=== PATIENT | male | born 1965 | race African-American/Black ===

== ENCOUNTER 2020-03-11 10:00 | Outpatient (REF) | payer OTHER, SELFPAY | END 2020-03-11 10:01 | disposition home or self-care (01) | LOC: HO.WFDLDS 10:00 | PROVIDERS: Visit Provider Internal Medicine | DX: Z20.828 Contact with and (suspected) exposure to other viral communicable diseases (principal) | CPT/HCPCS: C9803; U0003 ==

== ENCOUNTER 2024-08-14 12:08 | Outpatient (AMB) | payer OTHER, SELFPAY ==
--- NOTE | 2024-08-14 12:14 | A.OFFPC_ITS ---
Vital Signs 08/14/24 12:25 Height 5 ft 11 in Weight 207 lb 4 oz BMI 28.9 BP 124/82 Blood Pressure Location Lt brachial Position Sitting Pulse 78 Pulse Source Pulse Oximeter Temp 97.9 F Temp Source Temporal Artery Scan Pulse Oximetry (%) 98 Oxygen Delivery Method Room Air Intake Visit Reasons: TANIA [facility] Intake Note: Werner presents in the office today to establish care - transfer from [facility]. Allergies Seasonal Allergies Allergy (Verified 08/14/24 12:17) Watery eyes, runny nose Tobacco use date assessed: 08/14/24 Dental Screening Dental Screen Date: 08/14/24 Did you have a dental visit in the last 12 months?: Yes Did you have a dental problem in the last 6 months where you did not have access to dental care?: No Was dental information given to patient?: Patient has dentist HPI HPI Comments History of Present Illness Details This is a 58-year-old male with a past medical history of hyperlipidemia, chronic sinusitis, hypertension, hyperlipidemia, aortic root dilatation, cervical radiculopathy and perennial allergic rhinitis presenting for follow up. He is a patient from [facility] primary care. He and his are doing well. His son is finishing up freshman year of high school. BPH-s/p TURP October [address] Esquivel. No complications. Hypertension-Taking amlodipine-benazepril 10-40 mg daily. Patient had an echocardiogram in 2022 which showed aortic root dilatation. He is followed by Cardiology, Dr. Martinez. Hyperlipidemia-managed with lifestyle modifications. He is due for blood work. Allergic rhinitis-he did not respond to allergy injections. He is followed by Dr. Das. He is on medications for this. Spring is the worst season. He uses a mask when he is outside. He does not have asthma. He had a colonoscopy a couple of years ago at [facility] and was told to repeat it in 10 years. He had a tetanus shot at Urgent care in [place] 3 weeks ago when he cut his left index finger. He will schedule a pneumonia vaccine at his pharmacy. Endorses bilateral elbow pain which has been worsening over the past few months. The right is worse than the left. He is right-hand dominant. When he extends his arms quickly there is a snapping sensation it is painful on the back of the elbow. He can hear the snap. No trauma. No swelling, weakness or discoloration. He has a history of cervical radiculopathy. He has been having tension and pain on the top of the left shoulder. No trauma. No pain radiating down the arms or numbness or tingling or weakness in the arms. Denies chest pain. ROS: Constitutional: No unexplained weight loss, fever, chills, fatigue or night sweats. Respiratory: No shortness of breath, cough or sputum production. Cardiovascular: No chest pain, chest pressure or chest discomfort. No palpitations or pedal edema. Neurologic: No headache, dizziness, syncope, unilateral weakness, ataxia, numbness or tingling in the extremities. Musculoskeletal: see HPI Psychiatric: No depression or anxiety. No SI/HI. Physical exam: Constitutional: Alert, in no distress. Neck: Supple, Full range of motion. No lymphadenopathy. No palpable thyroid masses. Respiratory: Clear to auscultation. Cardiovascular: S1 S2 regular. No murmurs. Musculoskeletal: Elbows: Full range of motion, nontender to palpation. No swelling or discoloration. Patient reproduces the snapping when he quickly extends his elbows. Cervical spine: Nontender to palpation, patient has decreased left rotation of the cervical spine and palpable tension and tenderness in the left paraspinal area. Psychiatric: Normal mood and affect [facility] Medical History (Updated 08/14/24 @ 13:33 by ORION Arellano) Neck pain on left side Cervical radiculopathy Allergic rhinitis BPH (benign prostatic hyperplasia) Pain of both elbows Left shoulder pain Hyperlipidemia Essential hypertension Screening for cardiovascular condition Surgical History (Updated 08/14/24 @ 13:31 by ORION Arellano) History of transurethral resection of prostate Family History (Updated 08/14/24 @ 12:25 by Amanda Kang MA) Mother Hypertension Diabetes Breast cancer Maternal Grandfather Prostate cancer Social History (Updated 08/14/24 @ 12:25 by Amanda Kang MA) Housing: House Alcohol intake: current Patient Tobacco Use Status: Former Tobacco user Tobacco use type: Cigarette Cigarette Packs Per Day: 1 Cigarettes Per Day: 15 Years Smoked: 5 e-Cigarette/Vaping Use: Never Used Second Hand Smoke Exposure: No service: No Current occupational status: employed Current occupation: personnel administrator Current occupational exposures/hazards: No Cognitive needs: No Hearing needs: No Vision needs: No Questionnaire PHQ-9 Over the last 2 weeks, how often have you been bothered by any of the following problems? 1. Little interest or pleasure in doing things: not at all 2. Feeling down, depressed, or hopeless: not at all 3. Trouble falling or staying asleep, or sleeping too much: not at all 4. Feeling tired or having little energy: not at all 5. Poor appetite or overeating: not at all 6. Feeling bad about yourself - or that you are a failure or have let yourself or your family down: not at all 7. Trouble concentrating on things, such as reading the newspaper or watching television: not at all 8. Moving or speaking so slowly that other people could have noticed. Or the opposite - being so fidgety or restless that you have been moving around a lot more than usual: not at all 9. Thoughts that you would be better off or of hurting yourself in some way: not at all Total score: 0 Depression Screening Interpretation: Negative Depression Screening Done: Yes 75878 - PHQ-9 Billing: Yes Source: Developed by Drs. Francis Soto, Marlyn Caicedo, Morris Coleman and colleagues, with an educational angeline from [employer]. Thrive Questionnaire Date Thrive assessed: 08/14/24 I am a: Patient What is your living situation today?: I have a steady place to live Within the past 12 months, did the food you bought not last and you didn't have the money to get more?: Never true Within the past 12 months, did you worry whether your food would run out before you got money to buy more?: Never true Do you have trouble paying for medicines?: No Do you have trouble getting transportation to medical appointments?: No Do you have trouble paying your heating and electricity bill?: No Do you have trouble taking care of your child, family member or friend?: No Do you have trouble with day-to-day activities such as bathing, preparing meals, shopping, managing finances, etc.?: No Are you currently unemployed and looking for a job?: No Are you interested in more education?: No Please select the resources that you would like help with: None Currently or been in a relationship where the following occur: No concerns reported THRIVE Score: 0 AUDIT C Alcohol Use Questionnaire (AUDIT-C) 1. How often do you have a drink containing alcohol?: Monthly or less 2. How many drinks containing alcohol do you have on a typical day when you are drinking?: 1 or 2 3. How often do you have six or more drinks on one occasion?: Never Total Score: 1 Score Reviewed/Action Taken: No JOSELYN-7 AMB Questionnaire JOSELYN-7 Date JOSELYN - 7 assessed: 08/14/24 Feeling nervous, anxious, or on edge: 0 = Not at all Not being able to stop or control worryin = Not at all Worrying too much about different things: 0 = Not at all Trouble relaxin = Not at all Being so restless that it is hard to sit still: 0 = Not at all Becoming easily annoyed or irritable: 0 = Not at all Feeling afraid as if something awful might happen: 0 = Not at all Total JOSELYN-7 score (0-4 normal; 5-9 mild; 10-14 moderate; 15-21 severe): 0 Source: Developed by Drs. Francis Soto, Marlyn Caicedo, Morris Coleman and colleagues, with an educational angeline from [employer]. JOSELYN-7 Assessment Billing JOSELYN-7 Assessment Tool: JOSELYN-7 Assessment 80899 Physical exam (Primary Care) Vital Signs: Last Vital Signs Temp 97.9 F 08/14/24 12:25 Pulse 78 08/14/24 12:25 BP 124/82 08/14/24 12:25 Pulse Ox 98 08/14/24 12:25 Oxygen Delivery Method Room Air 08/14/24 12:25 BMI result Body Mass Index 28.9 Tobacco/Smoking Status: Tobacco use Status Tobacco use date assessed 08/14/24 08/14/24 12:27 Patient Tobacco Use Status Former Tobacco user 08/14/24 12:27 Tobacco use type Cigarette 08/14/24 12:27 e-Cigarette/Vaping Use Never Used 08/14/24 12:27 PHQ-9: PHQ-9 Score PHQ-9: Total score 0 08/14/24 12:16 Depression Screening Interpretation: Negative Thrive Assessment: Date of Thrive Assessment Date Thrive assessed 05/19/25 05/19/25 12:16 Currently or been in a relationship where the following occur: No concerns reported Coding Level of Care Code Est Pt Level 4 (62455) Complex EM visit Add On G2211 Diagnoses Screening for cardiovascular condition Z13.6 Essential hypertension I10 Hyperlipidemia E78.5 Pain of both elbows M25.521; M25.522 BPH (benign prostatic hyperplasia) N40.0 Neck pain on left side M54.2 Additional Codes JOSELYN-7 Assessment Billing - JOSELYN-7 Assessment Tool: JOSELYN-7 Assessment 62618 ([id number]) PHQ-9 - 75243 - PHQ-9 Billing: Yes ([id number]) Assessment & Plan Assessment & Plan (1) Screening for cardiovascular condition: Code(s): Z13.6 - Encounter for screening for cardiovascular disorders Category: Medical (2) Essential hypertension: Code(s): I10 - Essential (primary) hypertension Category: Medical Plan: Continue current regimen. Recommended low-salt diet and avoidance of caffeine. Continue regular exercise. (3) Hyperlipidemia: Code(s): E78.5 - Hyperlipidemia, unspecified Category: Medical Plan: Check lipid profile. (4) Pain of both elbows: Code(s): M25.521 - Pain in right elbow; M25.522 - Pain in left elbow Category: Medical Plan: Patient tried using conservative measures including exercises and a tennis elbow strap and brace. Refer to orthopedics. (5) BPH (benign prostatic hyperplasia): Code(s): N40.0 - Benign prostatic hyperplasia without lower urinary tract symptoms Category: Medical Plan: Status post TURP. Followed by urology. He has a follow up in January. (6) Neck pain on left side: Code(s): M54.2 - Cervicalgia Category: Medical Plan: Continue gentle stretching. Refer to physical therapy. If symptoms do not resolve in 6 weeks follow up in the office. Plan Schedule physical exam in 6 months. Orders: Orders Lipid Panel Today E78.5 - Hyperlipidemia, unspecified, I10 - Essential (primary) hypertension, Z13.6 - Encounter for screening for cardiovascular disorders Comprehensive Met. Panel Today E78.5 - Hyperlipidemia, unspecified, I10 - Essential (primary) hypertension, Z13.6 - Encounter for screening for cardiovas cular disorders Complete Blood Count no Diff Today E78.5 - Hyperlipidemia, unspecified, I10 - Essential (primary) hypertension, Z13.6 - Encounter for screening for cardiovas cular disorders PT Evaluation and Treatment Today M54.2 - Cervicalgia Referrals Orthopedics Referral M25.521 - Pain in right elbow, M25.522 - Pain in left elbow Medications: New amlodipine-benazepril 10-40 mg 1 cap PO DAILY 90 caps 3RF Patient Instructions: AT physical therapy in [employer]
[2024-08-14 12:25] VITALS: BP 124/82; PULSE 78; TEMP 36.6; O2SAT 98; BMI 28.9
== END 2024-08-14 13:01 | disposition home or self-care (01) ==
LOC: HO.HMCFM 12:08
PROVIDERS: PCP Physician Assistant Medical; Visit Provider Physician Assistant Medical
DX: Z13.6 Encounter for screening for cardiovascular disorders (principal); I10 Essential (primary) hypertension; E78.5 Hyperlipidemia, unspecified; M25.521 Pain in right elbow; M25.522 Pain in left elbow; N40.0 Benign prostatic hyperplasia without lower urinary tract symptoms; M54.2 Cervicalgia

== ENCOUNTER → 2024-08-14 12:08 | Outpatient (BNVA) | payer OTHER, SELFPAY | PROVIDERS: PCP Physician Assistant Medical; Visit Provider Physician Assistant Medical | DX: I10 Essential (primary) hypertension (principal); E78.5 Hyperlipidemia, unspecified; J32.9 Chronic sinusitis, unspecified; M54.12 Radiculopathy, cervical region; M25.521 Pain in right elbow; M25.522 Pain in left elbow; N40.0 Benign prostatic hyperplasia without lower urinary tract symptoms; M54.2 Cervicalgia | CPT/HCPCS: 96127 ==

== ENCOUNTER 2024-09-14 08:56 | Outpatient (REF) | payer OTHER, SELFPAY ==
[2024-09-14 11:05] LABS: Hemoglobin 14.5 g/dl (14.0-18.0); Mean Corpuscular Hemoglobin 27.7 pg (27.0-33.0); Mean Corpuscular Volume 84.1 fL (80.0-98.0); Mean Platelet Volume 10.1 fL (9.4-12.4); Platelet Count 284 X10*3/uL (160-400); Red Blood Count 5.23 X10*6/uL (4.60-5.80); Red Cell Distribution Width 14.7 % (11.0-16.0); White Blood Count 5.5 X10*3/uL (4.8-10.8)
[2024-09-14 11:39] LABS: Alanine Aminotransferase 29 U/L (0-40); Albumin Level 4.3 g/dL (3.5-5.0); Alkaline Phosphatase 46 U/L (39-117); Anion Gap 8 (12-20); Aspartate Amino Transferase 30 U/L (5-37); Bilirubin Total 0.5 mg/dL (0.0-1.0); Blood Urea Nitrogen 11 mg/dL (9-16); Calcium 9.4 mg/dL (8.4-10.2); Carbon Dioxide 28 mmol/L (22-29); Chloride 109 mmol/L (96-108); Cholesterol 201 mg/dL (<200); Estimated Glomerular Filt Rate > 60; Glucose Random 87 mg/dL (60-115); HDL Cholesterol 52 mg/dL (>40); LDL Cholesterol Calculated 133 mg/dL (<100); Potassium 4.1 mmol/L (3.3-5.1); Sodium 141 mmol/L (135-145); Total Protein 7.1 g/dL (6.5-8.0); Triglycerides 81 mg/dL (<150)
== END 2024-09-14 08:57 | disposition home or self-care (01) ==
LOC: HO.WFDLDS 08:56
PROVIDERS: Visit Provider Physician Assistant Medical
DX: E78.5 Hyperlipidemia, unspecified (principal); Z13.6 Encounter for screening for cardiovascular disorders; I10 Essential (primary) hypertension
CPT/HCPCS: 36415; 80053; 80061; 85027

== ENCOUNTER 2025-02-15 12:07 | Outpatient (AMB) | payer OTHER, SELFPAY ==
--- NOTE | 2025-02-15 12:12 | A.OFFPC_ITS ---
Vital Signs 02/15/25 12:16 Height 5 ft 11 in Weight 211 lb 2 oz BMI 29.4 BP 118/82 Blood Pressure Location Lt brachial Position Sitting Respiration 15 Pulse 81 Pulse Source Pulse Oximeter Temp 97.8 F Temp Source Temporal Artery Scan Pulse Oximetry (%) 98 Oxygen Delivery Method Room Air Intake Visit Reasons: annual physical exam Intake Note: Werner presents in the office today for his annual physical. Allergies Seasonal Allergies Allergy (Verified 02/15/25 12:14) Watery eyes, runny nose Tobacco use date assessed: 02/15/25 Dental Screening Dental Screen Date: 02/15/25 Did you have a dental visit in the last 12 months?: Yes Did you have a dental problem in the last 6 months where you did not have access to dental care?: No Was dental information given to patient?: Patient has dentist HPI HPI Comments History of Present Illness Details This is a 59-year-old male with a past medical history of hyperlipidemia, chronic sinusitis, hypertension, hyperlipidemia, aortic root dilatation, cervical radiculopathy and perennial allergic rhinitis presenting for a physical exam. Endorses right inner knee pain for 3 months. It started after he was twisting his knee repetitively playing golf, and he says he did not warm up properly. He tried stretching over the past 3 months, wearing a knee brace, but it is not getting better. It does not give out, click or pop. He does not want to do physical therapy because he does not feel that this would help. I ordered an x- ray, and I will consider MRI pending those results because may have a meniscal injury based on his exam today and history. BPH-s/p TURP October [address] Esquivel. No complications. Sees annually. Hypertension-Taking amlodipine-benazepril 10-40 mg daily. Patient had an echocardiogram in 2022 which showed aortic root dilatation, but he then saw Cardiology who did not recommend further surveillance it did not think that this was true aortic dilation. Hyperlipidemia-managed with lifestyle modifications. He is due for blood work. Allergic rhinitis- He is followed by Dr. Das. He is on medications for this. Spring is the worst season. He uses a mask when he is outside. He does not have asthma. He had a colonoscopy a couple of years ago at [facility] and was told to repeat it in 10 years. Tetanus is up-to-date. He will schedule a pneumonia vaccine at his pharmacy. Murmur on exam. Patient says he was told this once in the past by another provider. Snores very loudly. Endorses non restorative sleep and daytime somnolence. ROS: Constitutional: No unexplained weight loss, fever, chills. +fatigue Eyes: No vision changes, blurry vision, double vision, eye pain, eye redness, eye discharge. ENT: No hearing loss, sneezing, congestion, runny nose or sore throat. Respiratory: No shortness of breath, cough or sputum production. Cardiovascular: No chest pain, chest pressure or chest discomfort. No palpitations or pedal edema. Gastrointestinal: No anorexia, nausea, vomiting or diarrhea. No abdominal pain or blood in stool. Genitourinary: No dysuria, hematuria, urinary frequency. Neurologic: No headache, dizziness, syncope, unilateral weakness, ataxia, numbness or tingling in the extremities. Musculoskeletal: See HPI Hematologic/Lymphatics: No bleeding or bruising. No painful lymph nodes. Skin: No rash or itching. Endocrine: No cold or heat intolerance. No polyuria or polydipsia. Psychiatric: No depression or anxiety. No SI/HI. Physical exam: Constitutional: Alert, in no distress. Head: Normocephalic. Eyes: Pupils are equal, round and reactive to light. Extraocular muscles intact. Ear, Nose and Throat: Canals clear. TMs normal. Normal nasal mucosa. No nasal discharge. No oral lesions. Neck: Supple, Full range of motion. No lymphadenopathy. No palpable thyroid masses. Respiratory: Clear to auscultation. Cardiovascular: S1 S2 regular, 1/6 systolic murmur. No carotid bruits. Gastrointestinal: Abdomen soft, non-tender, non-distended. Normal bowel sounds. No palpable masses. Neurologic: No focal neurological deficits. Symmetric patellar reflexes. Moves all extremities spontaneously. Skin: No rashes Musculoskeletal: Medial aspect of the left knee is tender to palpation. No laxity of the joint appreciated on exam. Negative Laci maneuver. Negative Israel test. Gait normal. Full range of motion of the knees. No deformity or swelling. Extremities: Warm and well perfused. No clubbing, cyanosis or edema. Intact peripheral pulses bilaterally. Psychiatric: Normal mood and affect [facility] Medical History (Updated 02/15/25 @ 12:46 by ORION Arellano) Snoring Non-restorative sleep Heart murmur Routine physical examination Left knee pain Neck pain on left side Cervical radiculopathy Allergic rhinitis BPH (benign prostatic hyperplasia) Pain of both elbows Left shoulder pain Hyperlipidemia Essential hypertension Screening for cardiovascular condition Surgical History (Updated 08/14/24 @ 13:31 by ORION Arellano) History of transurethral resection of prostate Family History Mother Hypertension Diabetes Breast cancer Maternal Grandfather Prostate cancer Social History (Updated 02/15/25 @ 12:15 by Amanda Kang CMA) Housing: House Alcohol intake: current Patient Tobacco Use Status: Former Tobacco user Tobacco use type: Cigarette Cigarette Packs Per Day: 1 Cigarettes Per Day: 15 Years Smoked: 5 e-Cigarette/Vaping Use: Never Used Second Hand Smoke Exposure: No service: No Current occupational status: employed Current occupation: claim administrator Current occupational exposures/hazards: No Cognitive needs: No Hearing needs: No Vision needs: No Questionnaire PHQ-9 Over the last 2 weeks, how often have you been bothered by any of the following problems? 1. Little interest or pleasure in doing things: not at all 2. Feeling down, depressed, or hopeless: not at all 3. Trouble falling or staying asleep, or sleeping too much: not at all 4. Feeling tired or having little energy: not at all 5. Poor appetite or overeating: not at all 6. Feeling bad about yourself - or that you are a failure or have let yourself or your family down: not at all 7. Trouble concentrating on things, such as reading the newspaper or watching television: not at all 8. Moving or speaking so slowly that other people could have noticed. Or the opposite - being so fidgety or restless that you have been moving around a lot more than usual: not at all 9. Thoughts that you would be better off or of hurting yourself in some way: not at all Total score: 0 Depression Screening Interpretation: Negative Depression Screening Done: Yes 48263 - PHQ-9 Billing: Yes Source: Developed by Drs. Francis Soto, Marlyn CaicedoMorris and colleagues, with an educational angeline from [employer]. Thrive Questionnaire Date Thrive assessed: 02/15/25 I am a: Patient What is your living situation today?: I have a steady place to live Within the past 12 months, did the food you bought not last and you didn't have the money to get more?: Never true Within the past 12 months, did you worry whether your food would run out before you got money to buy more?: Never true Do you have trouble paying for medicines?: No Do you have trouble getting transportation to medical appointments?: No Do you have trouble paying your heating and electricity bill?: No Do you have trouble taking care of your child, family member or friend?: No Do you have trouble with day-to-day activities such as bathing, preparing meals, shopping, managing finances, etc.?: No Are you currently unemployed and looking for a job?: No Are you interested in more education?: No Please select the resources that you would like help with: None Currently or been in a relationship where the following occur: No concerns reported THRIVE Score: 0 AUDIT C Alcohol Use Questionnaire (AUDIT-C) 1. How often do you have a drink containing alcohol?: Monthly or less 2. How many drinks containing alcohol do you have on a typical day when you are drinking?: 1 or 2 3. How often do you have six or more drinks on one occasion?: Never Total Score: 1 JOSELYN-7 AMB Questionnaire JOSELYN-7 Date JOSELYN - 7 assessed: 02/15/25 Feeling nervous, anxious, or on edge: 0 = Not at all Not being able to stop or control worryin = Not at all Worrying too much about different things: 0 = Not at all Trouble relaxin = Not at all Being so restless that it is hard to sit still: 0 = Not at all Becoming easily annoyed or irritable: 0 = Not at all Feeling afraid as if something awful might happen: 0 = Not at all Total JOSELYN-7 score (0-4 normal; 5-9 mild; 10-14 moderate; 15-21 severe): 0 Source: Developed by Drs. Francis Soto, Morris Angel and colleagues, with an educational angeline from [employer]. JOSELYN-7 Assessment Billing JOSELYN-7 Assessment Tool: JOSELYN-7 Assessment 04657 Physical exam (Primary Care) Vital Signs: Last Vital Signs Temp 97.8 F 02/15/25 12:16 Pulse 81 02/15/25 12:16 Resp 15 02/15/25 12:16 BP 118/82 02/15/25 12:16 Pulse Ox 98 02/15/25 12:16 Oxygen Delivery Method Room Air 02/15/25 12:16 BMI result Body Mass Index 29.4 Tobacco/Smoking Status: Tobacco use Status Tobacco use date assessed 02/15/25 02/15/25 12:20 Patient Tobacco Use Status Former Tobacco user 02/15/25 12:15 Tobacco use type Cigarette 02/15/25 12:15 e-Cigarette/Vaping Use Never Used 02/15/25 12:15 PHQ-9: PHQ-9 Score PHQ-9: Total score 0 02/15/25 12:34 Depression Screening Interpretation: Negative Thrive Assessment: Date of Thrive Assessment Date Thrive assessed 02/15/25 02/15/25 12:20 Currently or been in a relationship where the following occur: No concerns reported Coding Level of Care Code Est Pt Level 3 (21261) Est Pt Prev Care 40-64y(81416) Diagnoses Routine physical examination Z00.00 Left knee pain M25.562 Non-restorative sleep G47.8 Snoring R06.83 Heart murmur R01.1 Additional Codes JOSELYN-7 Assessment Billing - JOSELYN-7 Assessment Tool: JOSELYN-7 Assessment 87144 ([id number]) PHQ-9 - 01827 - PHQ-9 Billing: Yes ([id number]) Assessment & Plan Assessment & Plan (1) Routine physical examination: Code(s): Z00.00 - Encounter for general adult medical examination without abnormal findings Category: Medical Plan: Patient is seen today for a routine physical. As part of this visit we reviewed the following issues, which are considered and essential part of preventative health in this age group: - Testicular cancer screening, which includes self exam teaching - Screening for colon cancer - Discussed Prostate cancer screening - Blood pressure screening - Cholesterol screening - Nutritional and exercise counseling - Counseling of injury prevention including fire prevention, smoke alarms and seat belt usage - Screening for depression - Education about skin cancer - Recommendations about immunizations - Recommendation of an eye exam - Screening for substance abuse (2) Left knee pain: Code(s): M25.562 - Pain in left knee Category: Medical Plan: X-ray ordered. Refer to Orthopedics. (3) Non-restorative sleep: Code(s): G47.8 - Other sleep disorders Category: Medical Plan: Sleep study ordered. (4) Snoring: Code(s): R06.83 - Snoring Category: Medical (5) Heart murmur: Code(s): R01.1 - Cardiac murmur, unspecified Category: Medical Plan: Echo ordered. Plan Schedule follow up in 3 months. Orders: Orders XR knee LT 3V Today M25.562 - Pain in left knee, Z00.00 - Encounter for general adult medical examination without abnormal findings Prostate Specific Antigen Today E78.5 - Hyperlipidemia, unspecified, I10 - Essential (primary) hypertension, Z12.5 - Encounter for screening for malignant neoplasm of prostate Comprehensive Met. Panel Today E78.5 - Hyperlipidemia, unspecified, I10 - Essential (primary) hypertension Complete Blood Count no Diff Today E78.5 - Hyperlipidemia, unspecified, I10 - Essential (primary) hypertension CA echo transthoracic complete 02/15/25 R01.1 - Cardiac murmur, unspecified Lipid Panel Today E78.5 - Hyperlipidemia, unspecified, I10 - Essential (pr imary) hypertension RT home sleep study 02/15/25 G47.8 - Other sleep disorders, R06.83 - Snoring Referrals Orthopedics Referral M25.562 - Pain in left knee
[2025-02-15 12:16] VITALS: BP 118/82; PULSE 81; RESP 15; TEMP 36.6; O2SAT 98; BMI 29.4
== END 2025-02-15 12:52 | disposition home or self-care (01) ==
LOC: HO.HMCFM 12:08
PROVIDERS: PCP Physician Assistant Medical; Visit Provider Physician Assistant Medical
DX: Z00.00 Encounter for general adult medical examination without abnormal findings (principal); M25.562 Pain in left knee; G47.8 Other sleep disorders; R06.83 Snoring; R01.1 Cardiac murmur, unspecified

== ENCOUNTER → 2025-02-15 12:07 | Outpatient (BNVA) | payer OTHER, SELFPAY | PROVIDERS: PCP Physician Assistant Medical; Visit Provider Physician Assistant Medical | DX: Z13.31 Encounter for screening for depression (principal); Z13.39 Encounter for screening examination for other mental health and behavioral disorders | CPT/HCPCS: 96127 ==

== ENCOUNTER 2025-02-16 07:19 | Outpatient (REF) | payer OTHER, SELFPAY ==
--- NOTE | ~2025-02-16 | XR_ITS ---
EXAMINATION: XR KNEE, LEFT CLINICAL INFORMATION: M25.562 - Pain in left knee COMPARISON: None available. TECHNIQUE: Three views of the left knee. FINDINGS: No visible acute fracture or dislocation. Joint spaces are maintained. No significant effusion. Small corticated ossification superior to the tibial tubercle. Superior patellar insertional enthesopathy. No abnormal soft tissue calcification. XR/XR knee LT 3V IMPRESSION: No acute osseous findings. Electronically signed by: Cameron Alcala MD 02/16/2025 04:14 PM [facility]LEX[facility]ER
--- OUTSIDE RECORDS SUMMARY | 2025-02-16 07:21 | XMS_ITS | Clinical Summary ---
Author Organization [facility] Address [address] [address] Phone Care Team Providers Care Cable Maker Name Role Phone Venus Gaitan Primary Care Provide r Allergies No known active allergies Medications amLODIPine-iván zepril (LOTREL) 10-40 mg per capsule Take 1 capsule by mouth every morning. 5 Active azelastine (ASTELIN) 137 mcg (0.1 %) nasal spray INHALE 2 SPRAYS TWO TIMES A DAY NEEDED FOR CONGESTION, RUNNY NOSE AND SNEEZING 5 Active EPINEPHrine 0.3 mg/0.3 mL auto-injector PRN 5 Active ipratropium (ATROVENT) 21 mcg (0.03 %) nasal spray INHALE 1 TO 2 SPRAYS BY NASAL ROUTE 2 TIMES A DAY NEEDED 5 Active tadalafiL (CIALIS) 20 MG tablet ONCE A DAY NEEDED 30-45 MINUTES PRIOR TO INTERCOURSE DISCUSSED 5 Active triamcinolone (NASACORT AQ) 55 mcg/actuation nasal inhaler INHALE 2 SPRAYS INTO EACH NOSTRIL ONCE DAILY X 1 MONTH THEN 1 SPRAY DAILY 5 Active Active Problems No known active problems Immunizations Immunization Administration Dates Next Due Tdap 07/25/2024 07/25/2034 Social History Tobacco Use Types Packs/Day Years Used Date Smoking Tobacco: Never Smokeless Tobacco: Never Tobacco Cessation:Counseling Given: Not Answered Education Answer Date Recorded Are you interested in more education? Not on du e 07/25/2024 Are you concerned about learning? Not on file 07/25/2024 No 07/25/2024 No 07/25/2024 Digital Access Answer Date Recorded No 07/25/2024 No 07/25/2024 Reliable internet access at home? Not on file 07/25/2024 Device with a working camera? Not on file Sex and Gender Information Value Date Recorded Sex Assigned at Not on file Legal Sex Male 8:47 AM EDT Gender Identity Not on file Sexual Orientation Not on file Last Filed Vital Signs Vital Sign Reading Time Taken Comments Blood Pressure 131/83 07/25/2024 9:02 AM EDT Pulse 71 07/25/2024 9:02 AM EDT Temperature 37.1 C (98.8 F) 07/25/2024 9:02 AM EDT Respiratory Rate 16 07/25/2024 9:02 AM EDT Oxygen Saturation 100% 07/25/2024 9:02 AM EDT Inhaled Oxygen Concentration - - Weight 90.7 kg (200 lb) 07/25/2024 9:02 AM EDT Height 180.3 cm (5' 11 ) 07/25/2024 9:02 AM EDT Body Mass Index 27.89 07/25/2024 9:02 AM EDT Plan of Treatment Health Maintenance Due Date Last Done Comments CREATININE LEVEL 1967 LIPID PANEL 1967 POTASSIUM LEVEL 1967 DEPRESSION SCREENING 1979 HEPATITIS C SCREENING 10/11/1985 HIV ONE-TIME SCREENING (18-65 YEARS) 10/11/1985 SCREENING FOR DIABETES 10/11/2002 COLOGUARD 10/11/2012 COLONOSCOPY 10/11/2012 COLORECTAL CANCER SCREENING 10/11/2012 FIT TEST 10/11/2012 FOBT 10/11/2012 SIGMOIDOSCOPY 10/11/2012 VIRTUAL COLONOSCOPY 10/11/2012 PNEUMOCOCCAL VACCINES (50+ years) (1 of 1 - PCV) 10/11/2017 INFLUENZA VACCINE (#1) 2024 , 02/13/2023, 04/04/2022, Additional history exists COVID-19 VACCINE (2024- season) 2024 02/13/2023, 12/19/2021, 08/02/2021, Additional history exists Adult Td,Tdap Booster 07/25/2034 07/25/2024 , 08/10/2017, 06/11/2008 RSV VACCINE (1 - 1-dose 75+ series) 10/11/2042 ZOSTER VACCINES Completed 07/05/2021, 02/04/2021 SMOKING STATUS SCREENING (Once After 26 Yrs) Completed 07/25/2024 HEPATITIS A VACCINES Aged Out No long er eligible based on patient's age to complete this topic HIB VACCINES Aged Out No longer eligi ble based on patient's age to complete this topic IPV VACCINES Aged Out No longer eligi ble based on patient's age to complete this topic MENINGOCOCCAL VACCINES (ACWY) Aged Out No longer eligible based on patient's age to complete this topic MENINGOCOCCAL VACCINES (B) Aged Out N o longer eligible based on patient's age to complete this topic Medical Devices Not on file Insurance HMO HMO [facility] Care Teams Cable Maker Relationship Specialty Start Date End Date Venus Gaitan PA [address] [place] [address] Dr [place]govern, [place] [id number] PCP - General Physician Cooking Casing And Drying Supervisor 07/25/24 Additional Source Comments The information contained in this document represents components of the legal health record. It is not the complete legal health record.[facility]
[2025-02-16 07:53] LABS: Hematocrit 45.5 % (42.0-52.0); Hemoglobin 14.9 g/dl (14.0-18.0); Mean Corpuscular HGB Conc 32.7 g/dl (31.0-36.0); Mean Corpuscular Hemoglobin 27.7 pg (27.0-33.0); Mean Corpuscular Volume 84.6 fL (80.0-98.0); NRBC Abs Auto 0.000 X10*3/uL (0.0-0.012); NRBC Pct Auto 0.0 /100WBC (0.0-0.2); Platelet Count 289 X10*3/uL (160-400); Red Blood Count 5.38 X10*6/uL (4.60-5.80); White Blood Count 6.4 X10*3/uL (4.8-10.8)
[2025-02-16 08:08] LABS: Alanine Aminotransferase 67 U/L (0-40); Albumin Level 4.5 g/dL (3.5-5.0); Alkaline Phosphatase 51 U/L (39-117); Anion Gap 11 (12-20); Aspartate Amino Transferase 49 U/L (5-37); Blood Urea Nitrogen 12 mg/dL (9-16); Calcium 9.4 mg/dL (8.4-10.2); Carbon Dioxide 28 mmol/L (22-29); Chloride 108 mmol/L (96-108); Cholesterol 219 mg/dL (<200); Estimated Glomerular Filt Rate > 60; HDL Cholesterol 54 mg/dL (>40); Potassium 4.1 mmol/L (3.3-5.1); Sodium 143 mmol/L (135-145); Total Protein 7.2 g/dL (6.5-8.0); Triglycerides 73 mg/dL (<150)
[2025-02-16 08:30] LABS: Prostate Specific Antigen 0.51 ng/mL (<0.05-4.0)
== END 2025-02-16 07:20 | disposition home or self-care (01) ==
LOC: HO.LAB 07:19
PROVIDERS: PCP Physician Assistant Medical; Visit Provider Physician Assistant Medical
DX: Z00.00 Encounter for general adult medical examination without abnormal findings (principal); Z12.5 Encounter for screening for malignant neoplasm of prostate; E78.5 Hyperlipidemia, unspecified; I10 Essential (primary) hypertension; M25.562 Pain in left knee
CPT/HCPCS: 36415; 73562; 80053; 80061; 84153; 85027

== ENCOUNTER → 2025-02-16 07:29 | Outpatient (BNV) | payer OTHER, SELFPAY | PROVIDERS: PCP Physician Assistant Medical; Visit Provider Radiology Diagnostic Ultrasound | DX: M25.562 Pain in left knee (principal) | CPT/HCPCS: 73562 ==